=== PATIENT | male | born 1960 | race Caucasian/White ===

== ENCOUNTER 2019-08-09 19:15 | Emergency (ER) | payer BC, SELFPAY ==
[2019-08-09 19:51] VITALS: BP 139/79; PULSE 110; RESP 22; TEMP 36.7; O2SAT 95; BMI 22.4
--- NOTE | 2019-08-09 21:09 | XR_ITS ---
WS: [id number] PROCEDURE: XR chest 2V* [id number] CLINICAL INFORMATION: cough COMPARISON: September 03, 2018 FINDINGS: Heart: Cardiomegaly. Lungs: Chronic emphysematous changes. Linear atelectasis right lung base. Chronic elevation left ann diaphragm unchanged. Trace left pleural fluid with slight left basilar atelectasis. Bones: Thoracic kyphosis. Osteopenia. XR/XR chest 2V* [id number] IMPRESSION: 1. Shallow inspiration with trace left pleural fluid and bibasilar atelectasis . 2. No focal pneumonia.
[2019-08-09 21:41] LABS: Basophils % 0.2 %; Eosinophils % 0.2 %; Hematocrit 37.5 % (42.0-52.0); Hemoglobin 11.9 g/dL (11.7-16.6); Lymphocytes # 0.4 10^3/uL (0.8-4.8); Lymphocytes % 2.2 %; Mean Corpuscular HGB Conc 31.7 g/dL (30.0-36.0); Mean Corpuscular Hemoglobin 29.2 pg (28.0-34.0); Mean Corpuscular Volume 91.9 fL (80-94); Mean Platelet Volume 10.5 fL (7.4-10.4); Monocytes # 0.8 10^3/uL (0.2-0.9); Monocytes % 3.9 %; Neutrophils # 18.2 10^3/uL (1.8-7.7); Neutrophils % 92.9 %; Nucleated Red Blood Cells % 0 %; Platelet Count 229 10^3/cmm (130-400); Red Blood Count 4.08 10^6/uL (4.1-5.3); Red Cell Distribution Width 14.5 % (12.1-15.1); White Blood Count 19.6 10^3/uL (4.0-10.0)
[2019-08-09 22:00] LABS: Alanine Aminotransferase 16 U/L (0-41); Albumin Level 3.1 g/dL (3.5-5.2); Alkaline Phosphatase 140 IU/L (40-130); Anion Gap 16.7 (5-19); Aspartate Amino Transferase 21 U/L (0-40); Blood Urea Nitrogen 11 mg/dL (8-23); Calcium 9.4 mg/Dl (8.8-10.2); Carbon Dioxide 22 mmol/L (22-29); Chloride 95 mmol/L (98-107); Globulin 3.3 g/dL (1.3-4.6); Glomerular Filtration Rate 98.6 mL/min (90-130); Glucose 120 mg/dL (74-106); Potassium 3.7 mmol/L (3.5-5.1); Sodium 130 mmol/L (136-145); Total Bilirubin 0.2 mg/dL (0.15-1.2); Total Protein 6.4 g/dL (6.6-8.7)
[2019-08-09 23:13] VITALS: BP 118/79; PULSE 93; RESP 24; O2SAT 94
--- NOTE | 2019-08-09 23:21 | W.ED.GENADLT ---
HPI - General Adult General: Chief complaint: Fever Stated complaint: FEVER/CHILLS Time Seen by Provider: 08/09/19 23:05 History of Present Illness: HPI narrative: Patient complains of fever started on Tuesday with cough ongoing and worsening. 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 Patient has not followed up on that. Patient has history of COPD. 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 MD complaint: cough and fever Associated symptoms: Reports cough PFSH ED PFSH: Statuses (acute, chronic, etc) shown below reflect problem list status as previously entered and may not be historically accurate Social History Smoking and tobacco status: former smoker Course Vital Signs: Vital signs: Vital Signs Temperature 98.0 F 08/09/19 19:51 Pulse Rate 110 H 08/09/19 19:51 Respiratory Rate 22 H 08/09/19 19:51 Blood Pressure 139/79 08/09/19 19:51 Pulse Oximetry 95 08/09/19 19:51 [facility] [place] - General Adult Lab Data: Labs: Lab Results 08/09/19 08/09/19 Range/Units 21:15 21:15 WBC 19.6 H (4.0-10.0) 10^3/ uL RBC 4.08 L (4.1-5.3) 10^6/u L Hgb 11.9 (11.7-16.6) g/dL Hct 37.5 L (42.0-52.0) % MCV 91.9 (80-94) fL MCH 29.2 (28.0-34.0) pg MCHC 31.7 (30.0-36.0) g/dL RDW 14.5 (12.1-15.1) % Plt Count 229 (130-400) 10^3/c mm MPV 10.5 H (7.4-10.4) fL Neut % (Auto) 92.9 % Lymph % (Auto) 2.2 % Mckenzie % (Auto) 3.9 % Eos % (Auto) 0.2 % Baso % (Auto) 0.2 % Neut # (Auto) 18.2 H (1.8-7.7) 10^3/u L Lymph # (Auto) 0.4 L (0.8-4.8) 10^3/u L Mckenzie # (Auto) 0.8 (0.2-0.9) 10^3/u L Eos # (Auto) 0.0 (0.0-0.8) 10^3/u L Baso # (Auto) 0.0 (0.0-0.1) 10^3/u L Nucleated RBC % (a uto) 0 % Nucleated RBCs # 0.0 /100WBC Sodium 130 L (136-145) mmol/L Potassium 3.7 (3.5-5.1) mmol/L Chloride 95 L (98-107) mmol/L Carbon Dioxide 22 (22-29) mmol/L Anion Gap 16.7 (5-19) BUN 11 (8-23) mg/dL Creatinine 0.8 (0.7-1.2) mg/dL GFR Calculation 98.6 (90-130) mL/min Glucose 120 H (74-106) mg/dL Calcium 9.4 (8.8-10.2) mg/Dl Total Bilirubin 0.2 (0.15-1.2) mg/dL AST 21 (0-40) U/L ALT 16 (0-41) U/L Alkaline Phosphata se 140 H (40-130) IU/L Total Protein 6.4 L (6.6-8.7) g/dL Albumin 3.1 L (3.5-5.2) g/dL Globulin 3.3 (1.3-4.6) g/dL Coding Level of Care Code ED Project Manager/Design Manager for Ronda Niño
[2019-08-09 23:30] VITALS: O2SAT 95
[2019-08-09] MEDS: levofloxacin-dextrose 5 % 500 MG/100 ML PREMIX 100 MG IV (23:33)
[2019-08-10 00:15] VITALS: PULSE 95; RESP 19; O2SAT 95
[2019-08-10] MEDS: ipratropium-albuterol 3 mL Neb INHALATION (00:15)
[2019-08-10 00:19] VITALS: PULSE 96; RESP 20; O2SAT 95
[2019-08-10 00:38] VITALS: BP 118/79; PULSE 94; RESP 18; O2SAT 95
[2019-08-10 01:05] VITALS: BP 118/78; PULSE 100; RESP 20; O2SAT 97
== END 2019-08-10 01:02 | disposition home or self-care (01) ==
PROVIDERS: Emergency Medicine; Emergency Provider Nurse Practitioner Family; Family Provider Nurse Practitioner Family; PCP Nurse Practitioner Family
DX: R50.9 Fever, unspecified (principal); Z87.891 Personal history of nicotine dependence
CPT/HCPCS: 71046; 80053; 85025; 94640; 96365; 99281; J1956

== ENCOUNTER 2019-09-03 19:27 | Inpatient (IN) | payer MEDICARE, MEDICAID, SELFPAY ==
[2019-09-03] VITALS (19 sets, daily range): BP systolic 80–102; BP diastolic 60–67; PULSE 82–95; RESP 15–20; O2SAT 83–98; BMI 21.2
--- NOTE | 2019-09-03 19:11 | ED_ITS ---
Entered by Aby Sommers, acting as scribe for Neville Loera DO HPI - SOB/Dyspnea General: Chief Complaint: Shortness of Breath/Dyspnea Stated Complaint: SOB Time Seen by Provider: 09/03/19 19:12 Source: patient and EMS Mode of arrival: EMS History of Present Illness: HPI Narrative: 59 y/o male presents to the ED with complaint of SOB. He has had fever and cough for the past 3 weeks. Pt was brought in by EMS from [facility]. He was given duo neb and albuterol treatments. Pt states he does not normally wear oxygen at home but he is on 3L now. Pt states he has a tumor in his lungs that is contributing to his SOB. He is not currently smoking, but he was a heavy smoker years ago. MD elicited complaint: shortness of breath Pertinent past history: COPD Onset (ago): week(s) Timing: constant Severity: moderate Exacerbating factors: coughing Relieving factors: oxygen Associated symptoms: Reports cough, fever(s) (intermittent) and orthopnea; Deny abdominal pain, chest pain, dizziness, extremity pain, nausea, palpitations, polydipsia, polyuria, syncope or vomiting Treatment prior to arrival: oxygen Related Data: Home oxygen amount: none Review of Systems Const: Reports: fever (intermittent); Denies: chills, body aches, fatigue, malaise or night sweats Eyes: Denies: change in vision or blurry vision ENMT: Denies: throat pain, oral sores/lesions, dental pain, nasal discharge or nasal congestion Card: Reports: swelling of feet/ankles and shortness of breath when lying down; Denies: chest pain, palpitations, irregular heart rhythm, edema, syncope or leg pain with exertion Resp: Reports: shortness of breath and non-productive cough GI: Denies: abdominal pain, nausea, vomiting, vomiting blood, coffee grounds in vomit, difficulty swallowing, heartburn/indigestion, diarrhea, constipation, cramping, blood in stool or black tarry stool : Denies: flank pain, difficulty urinating, painful urination, urinary frequency, urinary urgency, urinary incontinence or blood in urine Musc: Denies: neck pain, back pain, extremity pain, extremity swelling, joint pain or joint swelling Skin/Breast: Denies: rash, itching or redness Neuro: Denies: headache, numbness in extremities, weakness in extremities, changes in sensation, lack of coordination, difficulty walking, frequent falls, dizziness, vertigo or confusion Psych: Denies: anxiety, depression, loss of interest, visual hallucinations, auditory hallucinations, suicidal ideation or homicidal ideation Endo: Denies: excessive urination, excessive thirst, tired all the time or cold intolerance Grady/Lymph: Denies: easy bruising, easy bleeding, petechiae, enlarged lymph nodes or tender lymph nodes PFSH ED PFSH: Statuses (acute, chronic, etc) shown below reflect problem list status as previously entered and may not be historically accurate Medical History (Updated 09/05/19 @ 13:02 by Neville Loera DO) Hydronephrosis (Acute) Lung mass (Acute) Neurogenic bladder (Acute) Paraplegic spinal paralysis (Acute) Pressure ulcer (Acute) PVD (peripheral vascular disease) (Acute) Suprapubic catheter (Acute) Surgical History H/O Spinal surgery (Acute) S/P orchiectomy (Acute) Family History Other Cancer Family history of alcoholism in father Social History Smoking and tobacco status: former smoker Alcohol intake: current Alcohol intake frequency: 3 or more drinks per day Physical Exam Const: COMMON NORMALS: oriented x3 and alert GENERAL APPEARANCE: cooperative, comfortable and appears older than stated age NUTRITIONAL APPEARANCE: thin ORIENTATION/CONSCIOUSNESS: Yes awake, Yes oriented to person and Yes oriented to place HENMT: COMMON NORMALS: normocephalic, head/scalp atraumatic, external ears normal, EAC's normal, TM's normal bilaterally, external nose normal, moist oral mucous membranes and oropharynx normal HEAD & SCALP: normocephalic and atraumatic NOSE: external nose normal EXTERNAL EAR: Yes external ears normal EXTERNAL AUDITORY CANAL: EAC's normal TYMPANIC MEMBRANE: TM's normal bilaterally MOUTH: oral and palatal mucosa normal, lip normal and tongue normal THROAT: posterior oropharynx normal and tonsils normal Eye: COMMON NORMALS: PERRL, EOMs intact bilaterally, conjunctivae normal and no scleral icterus CONJUNCTIVA: Yes conjunctivae normal PUPIL: Yes PERRL Neck/C-Spine: COMMON NORMALS: full ROM, no lymphadenopathy, supple, no meningeal signs and thyroid normal THYROID: thyroid normal and asymmetrical Lymph: LYMPHATIC: no lymphadenopathy noted Resp: COMMON NORMALS: no use of accessory muscles EFFORT & INSPECTION: Yes able to speak in complete sentences AUSCULTATION: wheezes Cardio: COMMON NORMALS: regular rate and regular rhythm RATE: regular rate RHYTHM: regular rhythm HEART SOUNDS: no murmurs GI: COMMON NORMALS: normal to inspection, nondistended, normoactive bowel sounds, soft to palpation and no hepatosplenomegaly AUSCULTATION: Yes normoactive bowel sounds PALPATION: Yes soft and Yes no hepatosplenomegaly : COMMON NORMALS: Yes no CVA tenderness BLADDER/KIDNEY EXAM: Yes no CVA tenderness Back/Pelvis: COMMON NORMALS: no CVA tenderness LUMBAR SPINE/LOWER BACK: Yes normal to inspection Extremity: NARRATIVE EXTREMITY EXAM: LE partial amputation GENERAL: Yes edema Neuro: COMMON NORMALS: oriented x3 SENSORIUM/ORIENTATION: Yes alert, Yes oriented to person and Yes oriented to place MENINGEAL SIGNS: Yes no meningeal signs Skin: COMMON NORMALS: no rashes or lesions noted and skin turgor normal GENERAL SKIN EXAM: no rashes or lesions noted and turgor normal Course ED course: Reviewed case with Dr. Lee will go ahead and admit he is a little concerned on the chest x-ray it was read as normal he thought there might be some some diaphragmatic air we ordered a CT he will follow-up with out on the floor. Vital Signs: Vital signs: Vital Signs Pulse Rate 83 09/04/19 06:35 Respiratory Rate 15 09/04/19 06:35 Blood Pressure 96/67 09/04/19 06:35 Pulse Oximetry 93 09/04/19 06:35 MDM - SOB/Dyspnea Lab Data: Labs: Lab Results 09/03/19 09/03/19 09/03/19 Range/Units 19:43 19:43 19:43 WBC 33.9 H* (4.0-10.0) 10^3/ uL RBC 3.93 L (4.1-5.3) 10^6/u L Hgb 11.6 L (11.7-16.6) g/dL Hct 34.3 L (42.0-52.0) % MCV 87.3 (80-94) fL MCH 29.5 (28.0-34.0) pg MCHC 33.8 (30.0-36.0) g/dL RDW 13.2 (12.1-15.1) % Plt Count 413 H (130-400) 10^3/c mm MPV 10.8 H (7.4-10.4) fL Neut % (Auto) 91.5 % Lymph % (Auto) 3.3 % [place] % (Auto) 2.6 % Eos % (Auto) 0.3 % Baso % (Auto) 0.4 % Neut # (Auto) 31.0 H (1.8-7.7) 10^3/u L Lymph # (Auto) 1.1 (0.8-4.8) 10^3/u L [place] # (Auto) 0.9 (0.2-0.9) 10^3/u L Eos # (Auto) 0.1 (0.0-0.8) 10^3/u L Baso # (Auto) 0.1 (0.0-0.1) 10^3/u L Nucleated RBC % (a uto) 0 % Total Counted 100 (0-100) Segmented Neutroph ils 61 % Band Neutrophils 35.0 % Lymphocytes (Manua l) 1 % Monocytes (Manual) 2.0 % Absolute Monocytes 0.7 H (0.1-0.6) 10^3/c mm Metamyelocytes 1.0 % Nucleated RBCs # 0.0 /100WBC Toxic Granulation 1+ H Toxic Vacuolation Trace Platelet Estimate Increased (Normal) PT 16.20 H (10.5-13.3) SECO NDS INR 1.26 H (0.8-1.2) Specimen Type Sample Site ABG pH (7.35-7.45) ABG pCO2 (35-45) mmHg ABG pO2 (80.0-100.0) mmH g ABG HCO3 (22-26) mmol/L ABG Base Excess (-2.0-2.0) mmol/ L Saul Test Hematocrit (42-52) % Hgb O2 Saturation (95-100) % Methemoglobin (0.4-1.5) % Total Hemoglobin (14-18) g/dL O2 Delivery Device [employer] Officer ID Sodium 124 L (136-145) mmol/L Potassium 4.5 (3.5-5.1) mmol/L Chloride 84 L (98-107) mmol/L Carbon Dioxide 15 L (22-29) mmol/L Anion Gap 29.5 H (5-19) BUN 43 H (8-23) mg/dL Creatinine 1.7 H (0.7-1.2) mg/dL GFR Calculation 41.3 L (90-130) mL/min Glucose 124 H (74-106) mg/dL Calculated Osmolal ity (285-295) mOsm/k g Calcium 8.4 L (8.5-10.5) mg/dL Total Bilirubin 0.4 (0.15-1.2) mg/dL AST 57 H (0-40) U/L ALT 31 (0-41) U/L Alkaline Phosphata se 112 (40-130) IU/L Troponin T Baselin e (0-15) ng/mL C-Reactive Protein (0.0-4.9) mg/L NT-Pro-B Natriuret Pep 1838 H (0-125) pg/mL Total Protein 6.5 L (6.6-8.7) g/dL Albumin 2.0 L (3.5-5.2) g/dL Globulin 4.5 (1.3-4.6) g/dL Lipase 8 L (13-60) U/L Procalcitonin (0-0.5) ng/mL Ethyl Alcohol (0-10) mg/dL Influenza Type A A g (Negative) POC Influenza B Ag (Negative) 09/03/19 09/03/19 09/04/19 Range/Units 20:05 20:25 00:43 WBC (4.0-10.0) 10^3/ uL RBC (4.1-5.3) 10^6/u L Hgb (11.7-16.6) g/dL Hct (42.0-52.0) % MCV (80-94) fL MCH (28.0-34.0) pg MCHC (30.0-36.0) g/dL RDW (12.1-15.1) % Plt Count (130-400) 10^3/c mm MPV (7.4-10.4) fL Neut % (Auto) % Lymph % (Auto) % [place] % (Auto) % Eos % (Auto) % Baso % (Auto) % Neut # (Auto) (1.8-7.7) 10^3/u L Lymph # (Auto) (0.8-4.8) 10^3/u L [place] # (Auto) (0.2-0.9) 10^3/u L Eos # (Auto) (0.0-0.8) 10^3/u L Baso # (Auto) (0.0-0.1) 10^3/u L Nucleated RBC % (a uto) % Total Counted (0-100) Segmented Neutroph ils % Band Neutrophils % Lymphocytes (Manua l) % Monocytes (Manual) % Absolute Monocytes (0.1-0.6) 10^3/c mm Metamyelocytes % Nucleated RBCs # /100WBC Toxic Granulation Toxic Vacuolation Platelet Estimate (Normal) PT (10.5-13.3) SECO NDS INR (0.8-1.2) Specimen Type Arterial Sample Site Radial, left ABG pH 7.42 (7.35-7.45) ABG pCO2 21.2 L (35-45) mmHg ABG pO2 77.5 L (80.0-100.0) mmH g ABG HCO3 13.6 L (22-26) mmol/L ABG Base Excess -9.0 L (-2.0-2.0) mmol/ L Saul Test Pos Hematocrit 35.5 L (42-52) % Hgb O2 Saturation 93.7 L (95-100) % Methemoglobin 0.9 (0.4-1.5) % Total Hemoglobin 11.6 L (14-18) g/dL O2 Delivery Device None [employer] Officer ID [email or web address] Sodium (136-145) mmol/L Potassium (3.5-5.1) mmol/L Chloride (98-107) mmol/L Carbon Dioxide (22-29) mmol/L Anion Gap (5-19) BUN (8-23) mg/dL Creatinine (0.7-1.2) mg/dL GFR Calculation (90-130) mL/min Glucose (74-106) mg/dL Calculated Osmolal ity (285-295) mOsm/k g Calcium (8.5-10.5) mg/dL Total Bilirubin (0.15-1.2) mg/dL AST (0-40) U/L ALT (0-41) U/L Alkaline Phosphata se (40-130) IU/L Troponin T Baselin e 99 H (0-15) ng/mL C-Reactive Protein (0.0-4.9) mg/L NT-Pro-B Natriuret Pep (0-125) pg/mL Total Protein (6.6-8.7) g/dL Albumin (3.5-5.2) g/dL Globulin (1.3-4.6) g/dL Lipase (13-60) U/L Procalcitonin (0-0.5) ng/mL Ethyl Alcohol (0-10) mg/dL Influenza Type A A g Negative (Negative) POC Influenza B Ag Negative (Negative) 09/04/19 Range/Units 00:43 WBC (4.0-10.0) 10^3/ uL RBC (4.1-5.3) 10^6/u L Hgb (11.7-16.6) g/dL Hct (42.0-52.0) % MCV (80-94) fL MCH (28.0-34.0) pg MCHC (30.0-36.0) g/dL RDW (12.1-15.1) % Plt Count (130-400) 10^3/c mm MPV (7.4-10.4) fL Neut % (Auto) % Lymph % (Auto) % [place] % (Auto) % Eos % (Auto) % Baso % (Auto) % Neut # (Auto) (1.8-7.7) 10^3/u L Lymph # (Auto) (0.8-4.8) 10^3/u L [place] # (Auto) (0.2-0.9) 10^3/u L Eos # (Auto) (0.0-0.8) 10^3/u L Baso # (Auto) (0.0-0.1) 10^3/u L Nucleated RBC % (a uto) % Total Counted (0-100) Segmented Neutroph ils % Band Neutrophils % Lymphocytes (Manua l) % Monocytes (Manual) % Absolute Monocytes (0.1-0.6) 10^3/c mm Metamyelocytes % Nucleated RBCs # /100WBC Toxic Granulation Toxic Vacuolation Platelet Estimate (Normal) PT (10.5-13.3) SECO NDS INR (0.8-1.2) Specimen Type Sample Site ABG pH (7.35-7.45) ABG pCO2 (35-45) mmHg ABG pO2 (80.0-100.0) mmH g ABG HCO3 (22-26) mmol/L ABG Base Excess (-2.0-2.0) mmol/ L Saul Test Hematocrit (42-52) % Hgb O2 Saturation (95-100) % Methemoglobin (0.4-1.5) % Total Hemoglobin (14-18) g/dL O2 Delivery Device [employer] Officer ID Sodium 129 L (136-145) mmol/L Potassium 4.3 (3.5-5.1) mmol/L Chloride 94 L (98-107) mmol/L Carbon Dioxide 13 L (22-29) mmol/L Anion Gap 26.3 H (5-19) BUN 43 H (8-23) mg/dL Creatinine 1.4 H (0.7-1.2) mg/dL GFR Calculation 51.7 L (90-130) mL/min Glucose 151 H (74-106) mg/dL Calculated Osmolal ity 269 L (285-295) mOsm/k g Calcium 7.3 L (8.5-10.5) mg/dL Total Bilirubin (0.15-1.2) mg/dL AST (0-40) U/L ALT (0-41) U/L Alkaline Phosphata se (40-130) IU/L Troponin T Baselin e (0-15) ng/mL C-Reactive Protein 187.2 H (0.0-4.9) mg/L NT-Pro-B Natriuret Pep (0-125) pg/mL Total Protein (6.6-8.7) g/dL Albumin (3.5-5.2) g/dL Globulin (1.3-4.6) g/dL Lipase (13-60) U/L Procalcitonin 26.98 H (0-0.5) ng/mL Ethyl Alcohol < 10 (0-10) mg/dL Influenza Type A A g (Negative) POC Influenza B Ag (Negative) Imaging Data^: CXR: Radiologist's impression: Portable AP upright chest, 09/03/2019 Clinical Data: dyspnea, lung mass Comparison: AP and lateral chest, 08/09/2019 Findings: No nodules, masses or effusions are seen. The heart is normal. The pulmonary vascularity is not increased. No pneumonia or pneumothorax is seen. The diaphragms are flattened. The aortic arch and descending aorta show tortuosity. There are healed right upper rib fractures and right mid clavicular fracture XR/XR chest 1V portable [id number] Impression: Atherosclerosis and hyperinflation. Dictated By:Yoly Nair MD Discharge Plan Discharge Patient Disposition: Admitted As Inpatient Admit Provider: Mike Rm Clinical Impression: Acute respiratory failure with hypoxia, Acute kidney injury superimposed on chronic kidney disease, Lung mass, COPD (chronic obstructive pulmonary disease), Chest pain, Suprapubic catheter, Neurogenic bladder, Pyelonephritis Discharge Orders: Transfer Out of Facility (Order); Ordered 09/04/19 Ordered By: Mike Rm Referrals: Terri Blackwell, [employer] MANAGER-C [Primary Care Provider] - Interventions: ED Discharge Assessment Last Done: 09/04/19 01:30 Discharge Date/Time: 09/04/19 01:39 Coding Level of Care Code ED Dot Compliance Specialist for Chg Fwd Exam Problem Focused The documentation recorded by the Matthieu stroud Ashley, accurately reflects the service I personally performed and the decisions made by Luz Maria frank Curtis L, DO Sep 03, 2019 19:27
--- NOTE | 2019-09-03 19:28 | XR_ITS ---
WS: [id number] Portable AP upright chest, 09/03/2019 Clinical Data: dyspnea, lung mass Comparison: AP and lateral chest, 08/09/2019 Findings: No nodules, masses or effusions are seen. The heart is normal. The pulmonary vascularity is not increased. No pneumonia or pneumothorax is seen. The diaphragms are flattened. The aortic arch a nd descending aorta show tortuosity. There are healed right upper rib fractures and right mid clavic ular fracture XR/XR chest 1V portable [id number] Impression: Atherosclerosis and hyperinflation.
[2019-09-03 19:55] LABS: Basophils # 0.1 10^3/uL (0.0-0.1); Basophils % 0.4 %; Eosinophils # 0.1 10^3/uL (0.0-0.8); Eosinophils % 0.3 %; Hematocrit 34.3 % (42.0-52.0); Hemoglobin 11.6 g/dL (11.7-16.6); Lymphocytes # 1.1 10^3/uL (0.8-4.8); Lymphocytes % 3.3 %; Mean Corpuscular HGB Conc 33.8 g/dL (30.0-36.0); Mean Corpuscular Hemoglobin 29.5 pg (28.0-34.0); Mean Corpuscular Volume 87.3 fL (80-94); Mean Platelet Volume 10.8 fL (7.4-10.4); Monocytes # 0.9 10^3/uL (0.2-0.9); Monocytes % 2.6 %; Neutrophils % 91.5 %; Nucleated Red Blood Cells % 0 %; Platelet Count 413 10^3/cmm (130-400); Red Blood Count 3.93 10^6/uL (4.1-5.3); Red Cell Distribution Width 13.2 % (12.1-15.1)
[2019-09-03 19:59] LABS: INR 1.26 (0.8-1.2)
[2019-09-03] MEDS: sodium chloride 0.9% 1,000 ML 999 ML IV ×2 (20:14→21:36)
[2019-09-03 20:15] LABS: Alanine Aminotransferase 31 U/L (0-41); Alkaline Phosphatase 112 IU/L (40-130); Anion Gap 29.5 (5-19); Aspartate Amino Transferase 57 U/L (0-40); Blood Urea Nitrogen 43 mg/dL (8-23); Calcium 8.4 mg/dL (8.5-10.5); Carbon Dioxide 15 mmol/L (22-29); Chloride 84 mmol/L (98-107); Globulin 4.5 g/dL (1.3-4.6); Glomerular Filtration Rate 41.3 mL/min (90-130); Glucose 124 mg/dL (74-106); Lipase 8 U/L (13-60); NT Pro B Type Natriuretic Pept 1838 pg/mL (0-125); Potassium 4.5 mmol/L (3.5-5.1); Sodium 124 mmol/L (136-145); Total Bilirubin 0.4 mg/dL (0.15-1.2); Total Protein 6.5 g/dL (6.6-8.7)
[2019-09-03 20:17] LABS: ABG PCO2 21.2 mmHg (35-45); ABG PH Result 7.42 (7.35-7.45); Arterial Blood Gas Hematocrit 35.5 % (42-52); Blood Gas Allen Test Pos; Blood Gas Sample Site Radial, left; Blood Gas Sample Type Arterial; HCO3 ABG 13.6 mmol/L (22-26); HGB O2 Sat 93.7 % (95-100); Methemoglobin 0.9 % (0.4-1.5); PO2 ABG 77.5 mmHg (80.0-100.0); Total Hemoglobin 11.6 g/dL (14-18)
[2019-09-03 20:20] LABS: White Blood Count 33.9 10^3/uL (4.0-10.0)
[2019-09-03 20:21] LABS: Platelet Estimate Increased (Normal); Total Cells Counted 100 (0-100)
[2019-09-03 20:22] LABS: Toxic Granulation 1+; Toxic Vacuolation TRACE
[2019-09-03 20:25] LABS: Absolute Segmented Neutrophil 20.6 10/cmm (1.6-7.1); Band Neutrophils Absolute 11.9 10^3/cmm (0.0-1.2); Segmented Neutrophils 61 %
[2019-09-03 20:26] LABS: Lymphocytes 1 %; Monocytes Absolute 0.7 10^3/cmm (0.1-0.6)
[2019-09-03 21:11] LABS: Influenza A by IFA Negative (Negative); Influenza B by IFA Negative (Negative)
[2019-09-03] MEDS: levofloxacin-dextrose 5 % 750 MG/150 ML PREMIX 150 MG IV (21:36)
[2019-09-03] MEDS: ipratropium-albuterol 3 mL Neb INHALATION (22:00)
[2019-09-04] VITALS (23 sets, daily range): BP systolic 61–110; BP diastolic 42–78; PULSE 62–115; RESP 11–36; O2SAT 68–99
[2019-09-04] MEDS: morphine 4 mg/mL SDV 1 mL IVP (00:15)
--- NOTE | 2019-09-04 00:38 | ECG_ITS ---
Measurements Intervals [place] Rate: 79 P: 266 AL: 117 QRS: 32 QRSD: 94 T: 66 QT: 404 QTc: 464 JUNCTIONAL RHYTHM LOW QRS VOLTAGE IN PRECORDIAL LEADS [QRS DEFLECTION < 1.0 mV IN CHEST LEADS] ABNORMAL RHYTHM ECG Compared to ECG 04/19/2018 21:44:47 Junctional rhythm now present Sinus tachycardia no longer present ST (T wave) deviation no longer present Electronically Signed On 09-04-2019 20:13:37 STAGE DRIVER by Daisha Walker M.D. [email or web address]
--- NOTE | 2019-09-04 00:52 | P.HP_ITS ---
Providers/Chief Complaint Primary Care Provider: Terri Blackwell [employer] Chief Complaint: SOB History of Present Illness Apolinar Dunbar is a 59 year old male with a past medical history of paraplegia from T11 down with a suprapubic catheter, deep tissue injury of sacrum, COPD, hypertension, peripheral vascular disease, history of alcohol abuse, who presents to the emergency room due to complaints of shortness of breath. Patient states that in early August patient is wheelchair-bound., he presented to his primary care physician's office for acute bronchitis and shortness of breath. He never really got better, complaints of progressing shortness of breath with exertion, progressing to shortness of breath at rest. Patient is wheelchair-bound. Patient states he has a chronic cough, clear phlegm. No sick contacts. No recent travel. Patient denies orthopnea. Denies paroxysmal nocturnal dyspnea. Patient states that he uses Symbicort twice daily. Has been using his albuterol more frequently. Denies bilateral lower extremity swelling. Denies a history of heart failure. Denies a history of CAD. States that he quit smoking 20 years ago. Patient states that he has had a poor appetite, decreased oral intake, no nausea, no vomiting, and no abdominal pain. Patient states that he has a right upper lobe lung nodule, that he sees Dr. Coelho for, there was plans on surgeries, he has a follow-up with him earlier this week, but was unable to make the appointment due to his shortness of breath. In addition patient states that he has had chest pain for some time, the chest pain is in the middle of his chest, both a sharp and dull pain, lasting a few seconds, worse with exertion, improving with rest, associated at times with shortness of breath, has becoming more frequent recently. During my exam lamination, patient was very agitated, in severe pain, states that he needs to get out of his bed, at times is not willing to answer questions as he is in pain. Review of Systems Const: Denies: fever or chills Eyes: Denies: change in vision ENMT: Denies: nasal congestion Card: Reports: chest pain; Denies: palpitations Resp: Reports: shortness of breath; Denies: productive cough, non-productive cough or wheezing GI: Denies: abdominal pain, nausea, vomiting, vomiting blood, diarrhea, co nstipation, blood in stool or black tarry stool : Denies: flank pain, difficulty urinating, painful urination or urinary frequency Musc: Denies: neck pain or back pain Skin/Breast: Denies: rash Neuro: Denies: headache, dizziness or vertigo Psych: Denies: anxiety or depression Endo: Denies: excessive urination or excessive thirst Medications/Allergies Allergies Allergy/AdvReac Type Severity Reaction Status Date / Time No Known Allergies Allergy Verified 08/09/19 19:57 PFSH Acute PFSH: Statuses (acute, chronic, etc) shown below reflect problem list status as previously entered and may not be historically accurate Medical History (Updated 09/04/19 @ 01:23 by Mike Rm MD) Hydronephrosis (Acute) Lung mass (Acute) Neurogenic bladder (Acute) Paraplegic spinal paralysis (Acute) Pressure ulcer (Acute) PVD (peripheral vascular disease) (Acute) Suprapubic catheter (Acute) Surgical History (Updated 09/04/19 @ 01:09 by Mike Rm MD) H/O Spinal surgery (Acute) S/P orchiectomy (Acute) Family History (Updated 08/20/19 @ 15:32 by Terri Regan LPN) Other Cancer Family history of alcoholism in father Social History (Updated 08/20/19 @ 15:33 by Terri Regan LPN) Smoking and tobacco status: former smoker Alcohol intake: current Alcohol intake frequency: 3 or more drinks per day Vitals/I&O/Wt Last Vital Signs Pulse 83 09/03/19 22:03 Resp 18 09/04/19 00:15 BP 102/60 09/03/19 22:05 Pulse Ox 97 09/03/19 22:05 09/03/19 09/03/19 09/04/19 14:59 22:59 06:59 Intake Total 1000 / 1000 Balance 1000 / 1000 Weight last 48 hrs Weight 74.843 kg Physical Exam Const: COMMON NORMALS: no apparent distress and oriented x3 GENERAL APPEARANCE: cooperative and comfortable HENMT: COMMON NORMALS: normocephalic HEAD & SCALP: normocephalic Eye: COMMON NORMALS: PERRL, EOMs intact bilaterally and no papilledema GENERAL EYE: normal appearance of both eyes PUPIL: Yes PERRL DIRECT OPHTHALMOSCOPY: Yes no papilledema Neck/C-Spine: COMMON NORMALS: full ROM, no lymphadenopathy, no JVD and thyroid normal THYROID: thyroid normal Lymph: LYMPHATIC: no lymphadenopathy noted Resp: COMMON NORMALS: normal respiratory effort, no retractions, no use of accessory muscles and clear to auscultation bilaterally AUSCULTATION: clear to auscultation bilaterally Cardio: COMMON NORMALS: no JVD, regular rate, regular rhythm, S1 normal heart sound, S2 normal heart sound, no gallops, no clicks and no murmurs RATE: regular rate RHYTHM: regular rhythm HEART SOUNDS: S1 normal and S2 normal GI: COMMON NORMALS: normal to inspection, nondistended, normoactive bowel sounds, soft to palpation, non-tender and no hepatosplenomegaly PALPATION: Yes soft and Yes no hepatosplenomegaly Extremity: COMMON NORMALS: normal to inspection, full ROM and no pedal edema NARRATIVE EXTREMITY EXAM: Left TMA Right foot, cool to touch, DP pulse dopplerable, DP pulse not dopplerable Neuro: COMMON NORMALS: oriented x3, CN's II-XII intact bilaterally and no focal motor deficits OTHER: T11 paraplegia, does not move bilateral lower extremities, suprapubic catheter in place Psych: COMMON NORMALS: mental status grossly normal, thought process normal and cooperative THOUGHT PROCESS: normal thought process Skin: NARRATIVE SKIN EXAM: Sacrum, multiple areas of deep tissue injury Data : 09/03/19 19:43 09/03/19 19:43 Micro: Microbiology 09/03/19 19:42 Blood Culture - Preliminary Blood SPECIMEN COLLECTED 09/03/19 19:43 Blood Culture - Preliminary Blood SPECIMEN COLLECTED A&P Assessment and plan (1) Acute respiratory failure with hypoxia: -Acute respiratory failure secondary to COPD exacerbation -Given patient's paraplegia, and right upper lobe lung nodule I am concerned for the possibility of a pulmonary embolism -Patient's BNP is 1800, but clinically does not seem fluid overloaded, no crackles on exam, lungs clear to auscultation, no bilateral lower extremity swelling, -Influenza negative Plan: -Ipratropium -Solu-Medrol -CT angiogram to evaluate for pulmonary embolism -Bilateral lower extremity ultrasounds Status: Acute Code(s): J96.01 - Acute respiratory failure with hypoxia (2) Pyelonephritis: -Patient's T11 paraplegia, has a suprapubic catheter in place -Patient's WBC count is 33,000, no significant source of infection count, UA has not been obtained by the ER even after multiple request by me -Patient has high risk factors for UTI and pyelonephritis -After multiple inflammatory markers pending Plan: -Given patient's borderline low blood pressures, will treat for UTI and pyelonephritis with Zosyn -Follow UA and blood cultures -CT abdomen to evaluate bilateral kidneys, rule out nephrolithiasis Status: Acute Code(s): N12 - Tubulo-interstitial nephritis, not specified as acute or chronic (3) Chest pain: No history of CAD, CABG, CHF Does have a history of peripheral vascular disease Has a history of hypertension Initial EKG showed possible ST elevation, but patient was very rotated to his side, as he cannot lie on his back due to pain, after proper repeat repositioning I repeated the EKG, no ST or T wave changes Plan: -Admit to [facility] -Aspirin statin -EKG, troponins -We will do a cardiac echocardiogram -Continue telemetry monitoring Status: Acute Code(s): R07.9 - Chest pain, unspecified (4) COPD (chronic obstructive pulmonary disease): Status: Acute Code(s): J44.9 - Chronic obstructive pulmonary disease, unspecified (5) Acute kidney injury superimposed on chronic kidney disease: -Secondary to dehydration, poor oral intake -CT abdomen pelvis pending to evaluate for nephrolithiasis -Patient receiving IV fluids Status: Acute Code(s): N17.9 - Acute kidney failure, unspecified; N18.9 - Chronic kidney disease, unspecified (6) PVD (peripheral vascular disease): Status: Acute Code(s): I73.9 - Peripheral vascular disease, unspecified (7) Neurogenic bladder: Status: Acute Code(s): N31.9 - Neuromuscular dysfunction of bladder, unspecified (8) Paraplegic spinal paralysis: Status: Acute Code(s): G82.20 - Paraplegia, unspecified (9) Lung mass: -Patient had a PET scan on 04/20/2019 which showed an FDG positive right upper lobe nodule, no metastasis -Patient was supposed to see Dr. Coelho for possible resection earlier this week, but could not make appointment Status: Acute Code(s): R91.8 - Other nonspecific abnormal finding of lung field (10) Suprapubic catheter: Status: Acute Code(s): Z93.59 - Other cystostomy status (11) Pressure ulcer: -Has pressure ulcers bilateral sacrum -Will require repositioning -Dressing changes Status: Acute Code(s): L89.90 - Pressure ulcer of unspecified site, unspecified stage Attestations Medical Necessity Statement*: Patient requires inpatient admission, to the [facility], for acute respiratory failure, chest pain, rhythm 2 midnights Coding Level of Care Code Acute Digital Marketing Executive for [facility] Fwd Diagnoses Acute respiratory failure with hypoxia J96.01 Pyelonephritis N12 Chest pain R07.9 COPD (chronic obstructive pulmonary disease) J44.9 Acute kidney injury superimposed on chronic kidney disease N17.9; N18.9 PVD (peripheral vascular disease) I73.9 Neurogenic bladder N31.9 Paraplegic spinal paralysis G82.20 Lung mass R91.8 Suprapubic catheter Z93.59 Pressure ulcer L89.90
--- NOTE | 2019-09-04 00:53 | CTR_ITS ---
PROCEDURE INFORMATION: Exam: CT Angiography Chest With Contrast Exam date and time: 09/04/2019 1:02 AM Age: 59 years old Clinical indication: Dyspnea; Additional info: Pe TECHNIQUE: Imaging protocol: Computed tomographic angiography of the chest with intravenous contrast. 3D rendering: MIP and/or 3D reconstructed images were created by the technologist. Total DLP: 1553.5 mGy-cm Radiation optimization: All CT scans at this facility use at least one of these dose optimization techniques: automated exposure control; mA and/or kV adjustment per patient size (includes targeted exams where dose is matched to clinical indication); or iterative reconstruction. Contrast material: VISI; Contrast volume: 95 ml; Contrast route: IV; COMPARISON: CTA Chest-Pulmonary Emb [id number] 09/03/2018 3:03 PM FINDINGS: Pulmonary arteries: Subsegmental pulmonary embolism in the left upper lobe axial series 2, image 182. Aorta: There is moderate aortic atherosclerotic disease. There is no aortic aneurysm. Lungs: 21 mm irregular right apical pulmonary nodule. There is mild upper lung predominant centrilobular emphysema. There are large bullae in the lingula. There is no consolidation. Pleural space: Unremarkable. No pneumothorax. No pleural effusion. Heart: There is straightening of the interventricular septum and relative asymmetric enlargement of the right ventricular lumen with RV/LV ratio of 1.2 (normal less than 1). There is no pericardial effusion. There is severe coronary artery calcification. Mediastinum: The esophagus is fluid-filled. There is a small sliding-type hiatal hernia. Lymph nodes: There is no mediastinal or hilar lymphadenopathy. Bones/joints: There is severe degenerative disease of both shoulders. There are multiple healed right rib fractures, right clavicle and scapular fractures. Chronic fractures and intervertebral fusion at T4 through T6. There is a chronic compression fracture at T7. Soft tissues: The extrathoracic soft tissues are unremarkable. IMPRESSION: 1. Solitary subsegmental pulmonary embolism in the left upper lobe. Minimal clot burden. 2. Right ventricular strain, likely unrelated to acute pulmonary embolism. 3. 21 mm right apical pulmonary nodule, stable since 09/03/2018. The nodule is suspicious for malignancy. PET-CT 04/07/2019 is not available for comparison. Fleischner follow up recommendations for incidental nodules are not indicated. Follow up per patient's medical condition. PROCEDURE INFORMATION: Exam: CT Abdomen And Pelvis With Contrast Exam date and time: 09/04/2019 1:02 AM Age: 59 years old Clinical indication: Dyspnea; Additional info: Pe TECHNIQUE: Imaging protocol: Computed tomography of the abdomen and pelvis with intravenous contrast. COMPARISON: CTA Chest-Pulmonary Emb [id number] 09/03/2018 3:03 PM FINDINGS: Lungs: Lung bases are clear. Liver: The liver is normal. Gallbladder and bile ducts: The gallbladder is distended. The wall is thin. No visible stones. No biliary dilation. Pancreas: The pancreas is unremarkable. Spleen: The spleen is unremarkable. Adrenals: The adrenal glands are unremarkable. Kidneys and ureters: Moderate right renal atrophy. Multifocal cortical irregularity and hypoenhancement with mild perinephric edema at the right upper pole. Extensive calcification within the mid and lower pole collecting system. Marked urothelial thickening and enhancement involving the proximal right ureter and renal pelvis. No hydronephrosis. 9 mm long x 6 mm diameter stone in the proximal right ureter just beyond the ureteropelvic junction. 2 mm stone at the right ureterovesical junction. No ureteral dilation. The left kidney and ureter are unremarkable. Stomach and bowel: The stomach is fluid distended. The wall is thin. The small bowel is diffusely mildly thick walled and fluid filled in the midportion with tapering to normal caliber distally. No abrupt transition point to suggest obstruction. The colon is markedly tortuous. There is no apparent colonic inflammation. Appendix: The appendix is not visible. Intraperitoneal space: Small volume pelvic ascites. Trace intraperitoneal free air. Vasculature: There is marked atherosclerotic calcification at the renal artery origins bilaterally causing at least moderate stenosis. There is severe aortic atherosclerotic disease. There is a 4.5 cm infrarenal abdominal aortic aneurysm just above the bifurcation. The aortic lumen is narrowed to 9 mm through the aneurysm. There is near occlusion of the aorta just above the bifurcation. There is severe atherosclerotic disease at the aortic bifurcation with near occlusion of the distal aortic lumen, occlusion of the right common iliac artery and multifocal near occlusion of the left common and external iliac artery and proximal femoral artery. Celiac and superior mesenteric arteries are patent. Lymph nodes: There is no lymphadenopathy in the retroperitoneum, mesentery, pelvis or inguinal regions. Bladder: There is a suprapubic catheter in the decompressed urinary bladder. Reproductive: The prostate and seminal vesicles are unremarkable. Bones/joints: There is moderate degenerative disease in the lumbar spine. Chronic left pubic fractures. Soft tissues: Extensive deep soft tissue gas within the intramuscular compartments of the proximal right thigh with associated edema and enlargement of the proximal thigh. CT/CT angio chest w abd pel w con IMPRESSION: 1. Soft tissue gas and edema consistent with necrotizing fasciitis involving the deep muscular compartments of the proximal right thigh. 2. Intraperitoneal free air of uncertain etiology. Findings suggest perforation of a hollow viscus. The site of perforation is uncertain. 3. Right renal abnormalities consistent with underlying chronic ischemia with infarcts, and superimposed acute infection or infarction. There are 2 stones in the right ureter but no hydronephrosis suggesting a nonfunctioning right kidney. 4. Severe aortic atherosclerotic disease with near occlusion of the distal aorta and occlusion of the right common iliac artery and multifocal near occlusion of the left common and external iliac arteries and left femoral artery. 5. 4.5 cm infrarenal abdominal aortic aneurysm. 6. Diffuse mucosal hyperenhancement with mild wall thickening and fluid distention of the mid small bowel without evidence of obstruction. Findings suggest enteritis. Radiation Dose CTDIVOL = (mGy): DLP = 1553.5 (mGy-cm)
[2019-09-04] MEDS: iodixanol 320 mg/mL 100mL Btl IV (01:06)
[2019-09-04] MEDS: HYDROmorphone 1 mg/mL INJ 1 mL IVP (01:10)
[2019-09-04 01:22] LABS: Troponin(5th) Baseline 99 ng/mL (0-15)
[2019-09-04 01:31] LABS: Procalcitonin 26.98 ng/mL (0-0.5)
--- NOTE | 2019-09-04 01:35 | PC.NURSE ---
pt arrived pressure ulcer on his coxxyx
[2019-09-04 01:50] LABS: Anion Gap 26.3 (5-19); Blood Urea Nitrogen 43 mg/dL (8-23); Calcium 7.3 mg/dL (8.5-10.5); Carbon Dioxide 13 mmol/L (22-29); Chloride 94 mmol/L (98-107); Glomerular Filtration Rate 51.7 mL/min (90-130); Glucose 151 mg/dL (74-106); Osmolality Calculated 269 mOsm/kg (285-295); Potassium 4.3 mmol/L (3.5-5.1); Sodium 129 mmol/L (136-145)
[2019-09-04 01:58] LABS: Alcohol Level < 10 mg/dL (0-10)
--- NOTE | 2019-09-04 02:29 | PC.NURSE ---
bilat buttocks has a multitude of decub ulcers, from buttocks down left leg near knee is red and dark purplish nonblanchable markings covering most the skin. on inside right leg is a large blister filled with fluid about an inch and half circumference. left foot is has toes amputated, spongy heel with some redness at the heel. right foot toes are bluish tinge to toes, some pressure areas on outer ankle and same reddish purple areas near heel. one eschar looking small area on outer right foot.
[2019-09-04 02:58] LABS: Troponin 5 2HR 98.56 ng/mL (0-15)
[2019-09-04 03:05] LABS: Troponin 5 2HR Delta -0.44 ABS# (0-10)
[2019-09-04] MEDS: sodium chloride 0.9% 1,000 ML 100 ML IV (03:08)
--- NOTE | 2019-09-04 03:21 | XR_ITS ---
WS: [id number] Portable AP upright chest, 09/04/2019 Clinical Data: cvl placement RIJ Comparison: Portable chest, 09/03/2019 Findings: The right internal jugular venous catheter ends in the superior vena cava. No pneumothorax is seen. The heart and lungs show no change from before. No nodules, masses or effusions are seen. XR/XR chest 1V portable [id number] Impression: 1. Satisfactory placement of right internal jugular venous catheter. 2. No pneumothorax is seen.
[2019-09-04] MEDS: piperacillin-tazobactam 3.375 GM in sodium chloride 0.9% (plus) 50 ML IV (03:31)
[2019-09-04] MEDS: enoxaparin 40 mg/0.4 mL Syringe SUBCUT (03:32)
[2019-09-04] MEDS: metroNIDAZOLE IV 500 MG/100 ML PREMIX 100 MG IV (03:40)
--- NOTE | 2019-09-04 03:52 | PC.NURSE ---
0330 DR RILEY AT BEDSIDE, CENTRAL LINE PLACED. 0350 CENTRAL LINE VERIFIED WITH PLACEMENT. PT IS IN AND OUT ON ALERTNESS. STATES HE HASNT SLEPT IN 3 DAYS. PT HAS GANGRENE/NARCOTIZING TO LOWER EXTREMITIES. LOWER EXTREMITIES COOL TO TOUCH. PT LUNGS ARE DIMINISHED. PT HAS LEVOPHED RUNNING AT 6 MCG.
--- NOTE | 2019-09-04 03:57 | PC.PHAR ---
Creatinine clearance is 62.9. Vancomycin is dosed at 1500mg IVPB every 24 hours to produce a predicted trough level of 11.06 (population based pharmacokinetic analysis). A trough level has been ordered from the lab to be obtained before the third dose to confirm and adjust if needed.
[2019-09-04 05:04] LABS: C Reactive Protein 187.2 mg/L (0.0-4.9)
--- NOTE | 2019-09-04 06:05 | PC.NURSE ---
REPORT HAS BEEN CALLED TO [facility] TO [facility]. PT HAS LEVO RUNNNING, WITH MAX OF 20MCG. PT HAS BEEN BOLUSED WITH FLUIDS, ALONG WITH GIVEN ANTIBIOTICS. LUNGS ARE DIMINISHED. MEHUL SANDOVAL IN ROUTE TO COME GET PT TO TAKE TO [facility].
[2019-09-04 06:14] LABS: Alanine Aminotransferase 26 U/L (0-41); Albumin Level 1.4 g/dL (3.5-5.2); Alkaline Phosphatase 80 IU/L (40-130); Anion Gap 20.3 (5-19); Aspartate Amino Transferase 52 U/L (0-40); Blood Urea Nitrogen 40 mg/dL (8-23); Calcium 7.1 mg/dL (8.5-10.5); Carbon Dioxide 16 mmol/L (22-29); Chloride 98 mmol/L (98-107); Globulin 3.3 g/dL (1.3-4.6); Glomerular Filtration Rate 61.8 mL/min (90-130); Glucose 159 mg/dL (74-106); Potassium 4.3 mmol/L (3.5-5.1); Sodium 130 mmol/L (136-145); Total Bilirubin 0.4 mg/dL (0.15-1.2); Total Protein 4.7 g/dL (6.6-8.7)
--- NOTE | 2019-09-04 06:34 | PC.NURSE ---
PT LEFT WITH MEHUL SANDOVAL. [facility] CALLED TO UPDATE. TIBURCIO RUNNING AT 15MCG.
--- NOTE | 2019-09-04 06:39 | PC.NURSE ---
PT SENT WITH MEHUL SANDOVAL WITH A BAG OF LEVOPHED, EPINEPHRINE, AND PHENYLPHRINE.
[2019-09-04 06:54] LABS: Lactic Acid level (Lactate) 3.8 mmol/L (0.5-2.2)
--- NOTE | 2019-09-04 06:57 | P.TS_ITS ---
Transfer Summary Providers Date of Admission: 09/04/19 01:22 Date of Discharge: 09/04/19 Attending Provider at Admission: Mike Rm MD Attending Provider at Transfer: Mike Rm MD Primary Care Provider: Terri Blackwell Anticipated Date of Transfer: Anticipated date of transfer: 09/04/19 Receiving Facility & Provider: Receiving Provider: [] Receiving facility: [] Diagnoses at Discharge Discharge Diagnosis (1) Acute respiratory failure with hypoxia: Status: Acute (2) Pyelonephritis: Status: Acute (3) Chest pain: Status: Acute (4) COPD (chronic obstructive pulmonary disease): Status: Acute (5) Acute kidney injury superimposed on chronic kidney disease: Status: Acute (6) PVD (peripheral vascular disease): Status: Acute (7) Neurogenic bladder: Status: Acute (8) Paraplegic spinal paralysis: Status: Acute (9) Lung mass: Status: Acute (10) Suprapubic catheter: Status: Acute (11) Pressure ulcer: Status: Acute Reason for Visit Reason for Visit: Reason For Visit: ACUTE HYPOXIC RESP FAILURE Hospital Course Discharge Summary: Apolinar Dunbar is a 59 year old male with a past medical history of paraplegia from T11 down with a suprapubic catheter, deep tissue injury of sacrum, COPD, hypertension, peripheral vascular disease, history of alcohol abuse, who presents to the emergency room due to complaints of shortness of breath. Patient states that in early August patient is wheelchair-bound., he presented to his primary care physician's office for acute bronchitis and shortness of breath. He never really got better, complaints of progressing shortness of breath with exertion, progressing to shortness of breath at rest. Patient is wheelchair-bound. Patient states he has a chronic cough, clear phlegm. No sick contacts. No recent travel. Patient denies orthopnea. Denies paroxysmal nocturnal dyspnea. Patient states that he uses Symbicort twice daily. Has been using his albuterol more frequently. Denies bilateral lower extremity swelling. Denies a history of heart failure. Denies a history of CAD. States that he quit smoking 20 years ago. Patient states that he has had a poor appetite, decreased oral intake, no nausea, no vomiting, and no abdominal pain. Patient states that he has a right upper lobe lung nodule, that he sees Dr. Coelho for, there was plans on surgeries, he has a follow-up with him earlier this week, but was unable to make the appointment due to his shortness of breath. In addition patient states that he has had chest pain for some time, the chest pain is in the middle of his chest, both a sharp and dull pain, lasting a few seconds, worse with exertion, improving with rest, associated at times with shortness of breath, has becoming more frequent recently. During my exam lamination, patient was very agitated, in severe pain, states that he needs to get out of his bed, at times is not willing to answer questions as he is in pain. 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 I spoke to Dr. Dillon for surgical consultation, he states that this is to of a complex case, he advised transfer to higher level of care. I spoke to [facility], general surgeon there, he believed that this is too of a complex case, requires university level care. I spoke to [facility], Dr. Vázuqez, she states that she will speak to her senior about the case before deciding. Currently patient is in the ICU, his blood pressures were in the 60s over 40s, Dr. Marx place a central line, receiving Levophed, normal saline, blood pressure improved into the 90s over 60s, patient is awake, alert, saturating in the high 90s on nasal cannula, heart rates in the 90s, patient states that he wants answers to do everything, including intubation, amputation, surgery to his abdomen. 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 occlusion of the distal aorta, infarction of the right kidney -Patient likely needs complete amputation of left leg, and needs vascular intervention for his occlusions -Patient is receiving Levophed, IV fluids, vancomycin, Zosyn, Flagyl -Awaiting news from [facility] -I am holding off on heparin drip given his subsegmental PE given the free air in his abdomen -Patient also has right kidney infarction with superimposed right pyelo, receiving IV antibiotics -Patient's condition is critical, prognosis is guarded, -Patient is full code, wants all interventions Unfortunately [facility] cannot fly out today, only ground tendon splint is availa ble, can take 3 to 4 hours, as below I went over the risks of transfer, risk of morbidity and mortality during transfer, patient accepts risk, wants everything to be done for him. Currently patient is unstable, critical, unknown order to save his life he will be transferred according to his wishes. Patient does have septic shock secondary to necrotizing fasciitis, he is on broad-spectrum antibiotics vancomycin, Zosyn, Flagyl, receiving fluids with Levophed. In addition patient has severe peripheral vascular disease, near complete occlusion distal aorta with a perforated viscus, I have decided not to put him on heparin drip or anticoagulation due to risk of bleeding into his perforated viscus. [facility] does not have any beds,. [facility] spoke to [facility], Dr. Meme MARSH is willing to accept through the emergency room, I spoke to the ER physician, who is willing to accept the transfer. Will set up transfer via air. Patient is currently in septic shock secondary to necrotizing fasciitis, currently receiving fluid boluses along with levo fed going at 15 mics, blood pressures 100s over 60s. I had a discussion with the patient about the risks of transfers, risk of morbidity and mortality during transfer, risk of during transfer, patient voiced understanding, all questions answered wants to be transferred for surgical intervention. I discussed with the patient the possible surgical interventions including but not limited to bilateral amputation of lower extremities, surgical interventions to the abdomen due to possible perforated viscus. I advised patient that he has a high risk of morbidity and mortality in in the surgery, high risk of morbidity mortality afterwards, extensive ICU admission, prolonged ventilation, possible tracheostomy, patient voiced understanding, all questions answered, states that he wants to live, he wants everything to be done, currently he states that he is doing well, and he gives me the thumbs up. Patient was excepted by [facility] surgery, patient will be admitted straight through the ER, I spoke to Dr. manzo and the ER attending. Unfortunately [facility] cannot fly out today, only ground tendon splint is available, can take 3 to 4 hours, as below I went over the risks of transfer, risk of morbidity and mortality during transfer, patient accepts risk, wants everything to be done for him. Currently patient is unstable, critical, inorder to save his life he will be transferred according to his wishes. Patient does have septic shock secondary to necrotizing fasciitis, he is on broad-spectrum antibiotics vancomycin, Zosyn, Flagyl, receiving fluids with Levophed. In addition patient has severe peripheral vascular disease, near complete occlusion distal aorta with a perforated viscus, I have decided not to put him on heparin drip or anticoagulation due to risk of bleeding into his perforated viscus. Currently in ICU, patient is in septic shock, on 15 mcg/min of Levophed, receiving LR boluses receiving vancomycin, Zosyn, Flagyl, his map is greater than 65, he saturating high 90s on room air, he keeps looking up out of bed very concerned, heart rates in the 90s, normal sinus rhythm, has a Perez catheter in place, has a right central line in place. On 09/04/2019 patient was transferred at 7 AM via ground transport to [facility]. TS Data Data Completed and Pending: Completed Studies During Hospitalization Category Date Time Status CT angio chest w abd pel w con Stat Cat Scan 09/04/19 00:53 Completed Pending at discharge Category Date Time Status CXRP [XR chest 1V portable [id number]] S tat Exams 09/04/19 03:21 Taken XR chest 1V abbie ble [id number] Urgent Exams 09/03/19 19:28 Taken Arterial Blood Ga s W/Coox Routine Lab 09/03/19 20:05 Results Blood Culture Sta t Lab 09/03/19 19:42 Results Lactic Acid level (Lactate) Q4H Lab 09/04/19 05:30 Received Troponin(5th) 6 h our. Timed Lab 09/04/19 06:38 [place] [id number] Rout ine Ultrasound 09/04/19 01:12 Ordered CV echo complete* [id number] Routine Ultrasound 09/04/19 00:46 [place] [id number] Routin e Ultrasound 09/04/19 02:01 Ordered Labs from last 24 hours 09/04/19 09/04/19 09/04/19 05:30 02:35 00:43 WBC RBC Hgb Hct MCV MCH MCHC RDW Plt Count MPV Neut % (Auto) Lymph % (Auto) [place] % (Auto) Eos % (Auto) Baso % (Auto) Neut # (Auto) Lymph # (Auto) [place] # (Auto) Eos # (Auto) Baso # (Auto) Nucleated RBC % (a uto) Total Counted Segmented Neutroph ils Band Neutrophils Lymphocytes (Manua l) Monocytes (Manual) Absolute Monocytes Metamyelocytes Nucleated RBCs # Toxic Granulation Toxic Vacuolation Platelet Estimate PT INR Specimen Type Sample Site ABG pH ABG pCO2 ABG pO2 ABG HCO3 ABG Base Excess Saul Test Hematocrit Hgb O2 Saturation Methemoglobin Total Hemoglobin O2 Delivery Device Perioperative Assistant ID Sodium 130 L 129 L Potassium 4.3 4.3 Chloride 98 94 L Carbon Dioxide 16 L 13 L Anion Gap 20.3 H 26.3 H BUN 40 H 43 H Creatinine 1.2 1.4 H GFR Calculation 61.8 L 51.7 L Glucose 159 H 151 H Calculated Osmolal ity 269 L Calcium 7.1 L 7.3 L Phosphorus 5.0 H Magnesium 2.0 Total Bilirubin 0.4 AST 52 H ALT 26 Alkaline Phosphata se 80 Troponin T Baselin e Troponin T 120 Min [place] 98.56 H Delta Troponin T -0.44 L C-Reactive Protein 187.2 H NT-Pro-B Natriuret Pep Total Protein 4.7 L D Albumin 1.4 L Globulin 3.3 Lipase Procalcitonin 26.98 H Ethyl Alcohol < 10 Influenza Type A A g POC Influenza B Ag 09/04/19 09/03/19 09/03/19 00:43 20:25 20:05 WBC RBC Hgb Hct MCV MCH MCHC RDW Plt Count MPV Neut % (Auto) Lymph % (Auto) [place] % (Auto) Eos % (Auto) Baso % (Auto) Neut # (Auto) Lymph # (Auto) [place] # (Auto) Eos # (Auto) Baso # (Auto) Nucleated RBC % (a uto) Total Counted Segmented Neutroph ils Band Neutrophils Lymphocytes (Manua l) Monocytes (Manual) Absolute Monocytes Metamyelocytes Nucleated RBCs # Toxic Granulation Toxic Vacuolation Platelet Estimate PT INR Specimen Type Arterial Sample Site Radial, left ABG pH 7.42 ABG pCO2 21.2 L ABG pO2 77.5 L ABG HCO3 13.6 L ABG Base Excess -9.0 L Saul Test Pos Hematocrit 35.5 L Hgb O2 Saturation 93.7 L Methemoglobin 0.9 Total Hemoglobin 11.6 L O2 Delivery Device None Perioperative Assistant ID [email or web address] Sodium Potassium Chloride Carbon Dioxide Anion Gap BUN Creatinine GFR Calculation Glucose Calculated Osmolal ity Calcium Phosphorus Magnesium Total Bilirubin AST ALT Alkaline Phosphata se Troponin T Baselin e 99 H Troponin T 120 Min [place] Delta Troponin T C-Reactive Protein NT-Pro-B Natriuret Pep Total Protein Albumin Globulin Lipase Procalcitonin Ethyl Alcohol Influenza Type A A g Negative POC Influenza B Ag Negative 09/03/19 09/03/19 09/03/19 19:43 19:43 19:43 WBC 33.9 H* RBC 3.93 L Hgb 11.6 L Hct 34.3 L MCV 87.3 MCH 29.5 MCHC 33.8 RDW 13.2 Plt Count 413 H MPV 10.8 H Neut % (Auto) 91.5 Lymph % (Auto) 3.3 [place] % (Auto) 2.6 Eos % (Auto) 0.3 Baso % (Auto) 0.4 Neut # (Auto) 31.0 H Lymph # (Auto) 1.1 [place] # (Auto) 0.9 Eos # (Auto) 0.1 Baso # (Auto) 0.1 Nucleated RBC % (a uto) 0 Total Counted 100 Segmented Neutroph ils 61 Band Neutrophils 35.0 Lymphocytes (Manua l) 1 Monocytes (Manual) 2.0 Absolute Monocytes 0.7 H Metamyelocytes 1.0 Nucleated RBCs # 0.0 Toxic Granulation 1+ H Toxic Vacuolation Trace Platelet Estimate Increased PT 16.20 H INR 1.26 H Specimen Type Sample Site ABG pH ABG pCO2 ABG pO2 ABG HCO3 ABG Base Excess Saul Test Hematocrit Hgb O2 Saturation Methemoglobin Total Hemoglobin O2 Delivery Device Perioperative Assistant ID Sodium 124 L Potassium 4.5 Chloride 84 L Carbon Dioxide 15 L Anion Gap 29.5 H BUN 43 H Creatinine 1.7 H GFR Calculation 41.3 L Glucose 124 H Calculated Osmolal ity Calcium 8.4 L Phosphorus Magnesium Total Bilirubin 0.4 AST 57 H ALT 31 Alkaline Phosphata se 112 Troponin T Baselin e Troponin T 120 Min [place] Delta Troponin T C-Reactive Protein NT-Pro-B Natriuret Pep 1838 H Total Protein 6.5 L Albumin 2.0 L Globulin 4.5 Lipase 8 L Procalcitonin Ethyl Alcohol Influenza Type A A g POC Influenza B Ag Vitals: Last Vital Signs Pulse 83 09/04/19 06:35 Resp 15 09/04/19 06:35 BP 96/67 09/04/19 06:35 Pulse Ox 93 09/04/19 06:35 TS Medications Medications Home Medications prednisone 10 mg PO DAILY #10 tab 08/10/19 [Rx Confirmed 09/03/19] albuterol sulfate 90 mcg/actuation aerosol inhaler 2 puff INHALATION Q6H PRN 08/20/19 [History Confirmed 09/03/19] amlodipine 10 mg tablet 10 mg PO QDAY 08/20/19 [History Confirmed 09/03/19] aspirin 81 mg tablet,delayed release 81 mg PO QDAY 08/20/19 [History Confirmed 09/03/19] baclofen 20 mg tablet 20 mg PO TID 08/20/19 [History Confirmed 09/03/19] budesonide-formoterol HFA 160 mcg-4.5 mcg/actuation aerosol inhaler 2 puff INHALATION BID 08/20/19 [History Confirmed 09/03/19] dantrolene 100 mg capsule 100 mg PO TID 08/20/19 [History Confirmed 09/03/19] hydrocodone 5 mg-acetaminophen 325 mg tablet 1 tab PO Q4H PRN 08/20/19 [History Confirmed 09/03/19] tramadol 50 mg tablet 50 mg PO Q6H PRN 08/20/19 [History Confirmed 09/03/19] Discharge Plan Discharge Patient Disposition: Xfer Other Prescriptions: No Action baclofen 20 mg tablet 20 mg PO TID RF: 0 amlodipine 10 mg tablet 10 mg PO QDAY RF: 0 dantrolene 100 mg capsule 100 mg PO TID RF: 0 hydrocodone-acetaminophen 5-325 mg tablet 1 tab PO Q4H PRN (Reason: Shortness Of Breath) RF: 0 albuterol sulfate [Proventil HFA] 90 mcg/actuation HFA aerosol inhaler 2 puff INHALATION Q6H PRN (Reason: Shortness Of Breath) RF: 0 Symbicort 160-4.5 mcg/actuation HFA aerosol inhaler 2 puff INHALATION BID RF: 0 tramadol 50 mg tablet 50 mg PO Q6H PRN (Reason: Pain) RF: 0 aspirin 81 mg tablet,delayed release (DR/EC) 81 mg PO QDAY RF: 0 prednisone 10 mg tablet 10 mg PO DAILY Qty: 10 RF: 0 Discharge Orders: Transfer Out of Facility (Order); Ordered 09/04/19 Ordered By: Mike Rm Referrals: Terri Blackwell FNP-C [Primary Care Provider] - Discharge Date/Time: 09/04/19 06:38 Transfer Attestations Time Spent in Transfer Care*: greater than 30 min Quality Metrics Clinical Quality Measures: During this hospital stay, did patient experience: None Coding Level of Care Code Acute Data Entry Associate for Chg Fwd Diagnoses Acute respiratory failure with hypoxia J96.01 Pyelonephritis N12 Chest pain R07.9 COPD (chronic obstructive pulmonary disease) J44.9 Acute kidney injury superimposed on chronic kidney disease N17.9; N18.9 PVD (peripheral vascular disease) I73.9 Neurogenic bladder N31.9 Paraplegic spinal paralysis G82.20 Lung mass R91.8 Suprapubic catheter Z93.59 Pressure ulcer L89.90
== END 2019-09-04 06:38 | disposition short-term general hospital (02) | DRG 871 ==
LOC: ER 09-04 01:34 → CSU 09-04 01:44 → ICU 09-04 02:50
PROVIDERS: Admitting Provider Family Medicine; Emergency Provider Family Medicine; Family Provider Nurse Practitioner Family; PCP Nurse Practitioner Family; Visit Provider Family Medicine
DX: A41.9 Sepsis, unspecified organism (principal); J96.01 Acute respiratory failure with hypoxia; R65.21 Severe sepsis with septic shock; M72.6 Necrotizing fasciitis; J44.1 Chronic obstructive pulmonary disease with (acute) exacerbation; N12 Tubulo-interstitial nephritis, not specified as acute or chronic; N17.9 Acute kidney failure, unspecified; G82.20 Paraplegia, unspecified; N18.9 Chronic kidney disease, unspecified; E86.0 Dehydration; I73.9 Peripheral vascular disease, unspecified; N31.9 Neuromuscular dysfunction of bladder, unspecified; L89.159 Pressure ulcer of sacral region, unspecified stage; Z87.891 Personal history of nicotine dependence; Z79.51 Long term (current) use of inhaled steroids; Z79.82 Long term (current) use of aspirin; Z79.899 Other long term (current) drug therapy
CPT/HCPCS: 12345; 36415; 36600; 71045; 71275; 74177; 80048; 80053; 80307; 82805; 83605; 83690; 83735; 83880; 84100; 84145; 84484; 85007; 85025; 85610; 86140; 87040; 87804; 93005; 93306; 94640; 96372; 99283; J1170; J1650; J1956; J2270; J2543; J3370; J7030; J7050; Q9967; S0030